=== PATIENT | male | born 1960 | race Caucasian/White ===

== ENCOUNTER 2024-04-02 13:19 | Inpatient (IN) | payer MEDICARE, OTHER ==
[~2024-04-02] VITALS: Ht 177.8 cm; Wt 70.0 kg
[2024-04-02] MEDS ORDERED: [UNRECOGNIZED DRUG - OTHER] IV SCH (13:35)
[2024-04-02] MEDS ORDERED: NOREPINEPHRINE IV SCH (13:35)
[2024-04-02 13:42] LABS: BASOPHILS % (AUTO) 0.5 % (0-1); EOSINOPHILS % (AUTO) 0 % (0-6); HEMATOCRIT 23.5 % (42.0-52.0); HEMOGLOBIN 8.1 g/dl (14.0-17.9); LYMPHOCYTES % (AUTO) 14.3 % (21-51); MEAN CORPUSCULAR HEMOGLOBIN 35.2 PG (27.0-31.0); MEAN CORPUSCULAR HGB CONC 34.3 g/dL (33.0-36.5); MEAN CORPUSCULAR VOLUME 102.5 FL (78-98); MEAN PLATELET VOLUME 9.1 FL (7.4-10.4); MONOCYTES # (AUTO) 0.3 X10'3 (0-0.9); NEUTROPHILS # (AUTO) 5.7 X10'3 (1.8-7.7); NEUTROPHILS % (AUTO) 81.2 % (42-75); PLATELET COUNT 69 X10'3 (140-440); RED BLOOD COUNT 2.29 X10'6 (4.70-6.10)
[2024-04-02 13:55] LABS: ALANINE AMINOTRANSFERASE 29 U/L (12-78); ALBUMIN 2.2 G/DL (3.4-5.0); ALKALINE PHOSPHATASE 50 IU/L (46-116); ANION GAP 18 (8-16); ASPARTATE AMINO TRANSFERASE 61 U/L (10-37); BILIRUBIN,TOTAL 8.3 MG/DL (0.1-1.0); BLOOD UREA NITROGEN 101 MG/DL (7-18); BUN/CREATININE RATIO 17.4 (10.0-20.0); CALCIUM 8.2 MG/DL (8.5-10.1); CHLORIDE 96 MMOL/L (99-107); CREATININE 5.82 MG/DL (0.60-1.10); GLUCOSE 124 MG/DL (70-104); SODIUM 131 MMOL/L (135-145); TOTAL CARBON DIOXIDE 16.8 MMOL/L (24-32); eCRCL 13 ML/MIN; eGFR 10 ML/MIN
[2024-04-02] MEDS: normal saline 1000ml 1,000 ML IV ONE ×2 (13:56→15:49)
[2024-04-02 13:57] LABS: ALBUMIN/GLOBULIN RATIO 0.4 (1.1-1.5); POTASSIUM 4.1 MMOL/L (3.5-5.1); TOTAL PROTEIN 7.1 G/DL (6.4-8.2)
[2024-04-02 14:02] LABS: PRO BRAIN NATRIURETIC PEPTIDE 2561 PG/ML (0-125)
[2024-04-02 14:06] LABS: ANISOCYTOSIS 3+; PLATELET ESTIMATE DECREASED
[2024-04-02 14:07] LABS: BURR CELLS 1+
[2024-04-02 14:08] LABS: MICROCYTOSIS 1+; TARGET CELLS FEW
[2024-04-02 14:12] LABS: APTT 30 SECONDS (22-32); INR 1.8 INR; PROTHROMBIN TIME 18.4 SECONDS (9.0-12.0)
[2024-04-02 14:27] LABS: ETHANOL < 10 MG/DL (<10); MAGNESIUM 3.1 MG/DL (1.5-2.4)
[2024-04-02] MEDS: NORepinephrine 8mg/ 250ml NS 250 ML IV SCH (14:54)
[2024-04-02] MEDS: albumin (Human) 5% 250ml 250 ML IV ONE (15:34)
[2024-04-02] MEDS: ondansetron/PF 4mg/2ml inj IV ONE (15:54)
[2024-04-02] MEDS: midazolam 1 mg/ML 2ml injection ONE (17:00)
[2024-04-02] MEDS: MIDAZolam 1 MG/ML 5ML VIAL IV ONE (17:01)
[2024-04-02 17:48] LABS: LYMPHOCYTES,BODY FLUID 86 %; MONOCYTES,BODY FLUID 5 %; NEUTROPHILS,BODY FLUID 9 %
[2024-04-02 17:53] LABS: BF MESOTHELIAL CELLS FEW; BFAPPEAR CLOUDY; BFCOLOR YELLOW; BFSOURCE OTHER; BFVOLUME 16 ML
[2024-04-02] MEDS: normal saline 1000ml 1,000 ML IV SCH (18:07)
[2024-04-02] MEDS ORDERED: magnesium hydroxide 30ml (MOM) UD suspension PO PRN (18:55)
[2024-04-02] MEDS ORDERED: LORazepam 2 mg/ml vial IV PRN (19:00)
[2024-04-02] MEDS ORDERED: haloperidol lactate 5mg/ml inj IM PRN (19:00)
[2024-04-02 19:20] LABS: PHOSPHORUS 6.9 MG/DL (2.3-4.5)
[2024-04-02] MEDS: LidoCAINE 2% Topical Jelly 11mL syringe (UROJET) TOP ONE (19:25)
[2024-04-02] MEDS: octreotide inj. 500 MCG in normal saline 100ml IV soln 97.5 ML IV SCH (19:36)
[2024-04-02] MEDS: albumin (Human) 5% 250ml 250 ML IV SCH (19:48)
[2024-04-02] MEDS: CefTRIAXone/D5W-Rocephin 1gm 50 ML IV SCH (19:48)
[2024-04-02] MEDS: lactulose 20gm/30ml cup PO SCH (19:48)
[2024-04-02 19:55] LABS: HEMOGLOBIN 7.3 g/dl (14.0-17.9); MEAN CORPUSCULAR HEMOGLOBIN 35.6 PG (27.0-31.0); MEAN CORPUSCULAR HGB CONC 35.2 g/dL (33.0-36.5); MEAN CORPUSCULAR VOLUME 101.2 FL (78-98); MEAN PLATELET VOLUME 8.7 FL (7.4-10.4); PLATELET COUNT 65 X10'3 (140-440); RED BLOOD COUNT 2.04 X10'6 (4.70-6.10); RED CELL DISTRIBUTION WIDTH 24.5 % (11.5-14.5); WHITE BLOOD COUNT 7.8 X10'3 (4.5-11.0)
[2024-04-02 20:00] LABS: HEMATOCRIT 20.7 % (42.0-52.0)
[2024-04-02] MEDS: thiamine 100mg/ml 2ml inj. IV SCH (20:30)
[2024-04-02] MEDS: folic acid 1mg tablet PO SCH (20:30)
[2024-04-02] MEDS: ringers solution, lacted 1,000 ML IV SCH (20:31)
[2024-04-02] MEDS: propranolol 10mg tablet PO SCH (21:00)
[2024-04-02] MEDS: rifaximin 550mg tablet PO SCH (21:15)
[2024-04-02] MEDS: pantoprazole 40MG/NS 100ML BAG 100 ML IV SCH (21:47)
[2024-04-02 22:07] LABS: BILIRUBIN,URINE SMALL (Neg); CLARITY,URINE CLEAR (Clear); COLOR,URINE YELLOW (Yellow); GLUCOSE, URINE NEGATIVE (Neg); KETONES,URINE TRACE mg/dl (Neg); LEUKOCYTE ESTERASE ,URINE NEGATIVE (Neg); NITRITES, URINE NEGATIVE (Neg); OCCULT BLOOD,URINE MODERATE (Neg); PH,URINE 5.5 (4.8-8.0); PROTEIN,URINE TRACE mg/dl (Neg)
[2024-04-02 22:09] LABS: OSMOLALITY UA 342 MOSM/K (50-1400)
[2024-04-02 22:14] LABS: SODIUM,URINE RANDOM < 15 MEQ/L
[2024-04-02 22:18] LABS: SQUAMOUS EPITHELIAL CELL,UR FEW /LPF (FEW); UA COLLECTION TYPE FOLEY CATH
[2024-04-02 22:19] LABS: WBC,URINE 0-4 /HPF (0-4)
[2024-04-02 22:20] LABS: BACTERIA,URINE FEW /HPF (Neg); MUCUS STRANDS FEW /LPF (Neg)
[2024-04-02 22:42] LABS: UA EOSINOPHILS NO EOS /HPF
[2024-04-02 23:00] VITALS: BP 99/56; PULSE 90; RESP 10; O2SAT 94
[2024-04-02 23:17] LABS: BF RBC COUNT 1075 /CU MM; BF WBC COUNT 65 /CU MM (0-1000)
[2024-04-03] VITALS (39 sets, daily range): BP systolic 90–118; BP diastolic 48–76; PULSE 61–95; RESP 9–22; TEMP 97.6; O2SAT 89–98
[2024-04-03 01:03] LABS: BASOPHILS # (AUTO) 0.1 X10'3 (0-0.2); BASOPHILS % (AUTO) 0.7 % (0-1); LYMPHOCYTES # (AUTO) 1.9 X10'3 (1.1-4.8); MONOCYTES # (AUTO) 0.3 X10'3 (0-0.9)
[2024-04-03 01:05] LABS: EOSINOPHILS % (AUTO) 0.2 % (0-6); LYMPHOCYTES % (AUTO) 21.6 % (21-51); MEAN CORPUSCULAR HEMOGLOBIN 35.4 PG (27.0-31.0); MEAN CORPUSCULAR VOLUME 101.3 FL (78-98); MONOCYTES % (AUTO) 3.4 % (2-12); NEUTROPHILS # (AUTO) 6.6 X10'3 (1.8-7.7); NEUTROPHILS % (AUTO) 74.1 % (42-75); PLATELET COUNT 64 X10'3 (140-440); RED BLOOD COUNT 1.85 X10'6 (4.70-6.10); RED CELL DISTRIBUTION WIDTH 24.3 % (11.5-14.5); WHITE BLOOD COUNT 8.9 X10'3 (4.5-11.0)
[2024-04-03 01:22] LABS: HEMATOCRIT 18.7 % (42.0-52.0); HEMOGLOBIN 6.6 g/dl (14.0-17.9)
[2024-04-03 01:26] LABS: % IRON SATURATION 116 % (11-46); IRON 92 UG/DL (53-167); TOTAL IRON BINDING CAPACITY 79 UG/DL (259-388)
[2024-04-03 01:48] LABS: ALANINE AMINOTRANSFERASE 23 U/L (12-78); ALBUMIN 2.4 G/DL (3.4-5.0); ALKALINE PHOSPHATASE 41 IU/L (46-116); ANION GAP 15 (8-16); ASPARTATE AMINO TRANSFERASE 55 U/L (10-37); BILIRUBIN,DIRECT 5.5 MG/DL (0-0.3); BILIRUBIN,TOTAL 9.8 MG/DL (0.1-1.0); BLOOD UREA NITROGEN 101 MG/DL (7-18); BUN/CREATININE RATIO 19.5 (10.0-20.0); CALCIUM 7.4 MG/DL (8.5-10.1); CHLORIDE 100 MMOL/L (99-107); CREATININE 5.19 MG/DL (0.60-1.10); GLUCOSE 130 MG/DL (70-104); POTASSIUM 3.8 MMOL/L (3.5-5.1); SODIUM 135 MMOL/L (135-145); TOTAL CARBON DIOXIDE 20.3 MMOL/L (24-32); eCRCL 14 ML/MIN; eGFR 11 ML/MIN
[2024-04-03 01:55] LABS: ALBUMIN/GLOBULIN RATIO 0.6 (1.1-1.5); FERRITIN 2979 NG/ML (26-388); PHOSPHORUS 6.3 MG/DL (2.3-4.5); TOTAL PROTEIN 6.2 G/DL (6.4-8.2)
[2024-04-03 07:26] LABS: HEMOGLOBIN 7.7 g/dl (14.0-17.9); MEAN CORPUSCULAR HEMOGLOBIN 34.2 PG (27.0-31.0); MEAN CORPUSCULAR HGB CONC 35.2 g/dL (33.0-36.5); MEAN CORPUSCULAR VOLUME 97.4 FL (78-98); MEAN PLATELET VOLUME 8.6 FL (7.4-10.4); PLATELET COUNT 59 X10'3 (140-440); RED BLOOD COUNT 2.25 X10'6 (4.70-6.10); RED CELL DISTRIBUTION WIDTH 24.8 % (11.5-14.5)
[2024-04-03 07:38] LABS: HEMATOCRIT 21.9 % (42.0-52.0)
[2024-04-03] MEDS: morphine 2 MG/ML inj. syringe IV PRN (10:42)
[2024-04-03] MEDS: ringers solution, lacted 1,000 ML IV ONE ×2 (10:47→12:00)
[2024-04-03] MEDS: MULTIVIT-MIN/FERROUS GLUCONATE 9 MG/15 ML LIQUID PO SCH (11:02)
[2024-04-03 11:37] LABS: HEMOGLOBIN 7.2 g/dl (14.0-17.9); MEAN CORPUSCULAR HEMOGLOBIN 34.4 PG (27.0-31.0); MEAN CORPUSCULAR HGB CONC 35.2 g/dL (33.0-36.5); MEAN CORPUSCULAR VOLUME 97.5 FL (78-98); MEAN PLATELET VOLUME 8.7 FL (7.4-10.4); PLATELET COUNT 55 X10'3 (140-440); RED CELL DISTRIBUTION WIDTH 25.2 % (11.5-14.5)
[2024-04-03 11:42] LABS: HEMATOCRIT 20.4 % (42.0-52.0)
[2024-04-03 17:33] LABS: HEMATOCRIT 22.1 % (42.0-52.0); HEMOGLOBIN 7.6 g/dl (14.0-17.9); MEAN CORPUSCULAR HEMOGLOBIN 34.1 PG (27.0-31.0); MEAN CORPUSCULAR HGB CONC 34.5 g/dL (33.0-36.5); MEAN CORPUSCULAR VOLUME 98.7 FL (78-98); MEAN PLATELET VOLUME 8.5 FL (7.4-10.4); PLATELET COUNT 59 X10'3 (140-440); RED BLOOD COUNT 2.24 X10'6 (4.70-6.10); RED CELL DISTRIBUTION WIDTH 26.6 % (11.5-14.5); WHITE BLOOD COUNT 8.6 X10'3 (4.5-11.0)
[2024-04-03] MEDS ORDERED: UNABLE TO OBTAIN (17:57)
[2024-04-03] MEDS: morphine 4 MG/ML inj SYRINge IV PRN (18:46)
[2024-04-03] MEDS: ondansetron/PF 4mg/2ml inj IV PRN (18:49)
[2024-04-03 20:06] LABS: EOSINOPHILS # (AUTO) 0.1 X10'3 (0-0.9); MONOCYTES # (AUTO) 0.3 X10'3 (0-0.9); NEUTROPHILS # (AUTO) 6.5 X10'3 (1.8-7.7); WHITE BLOOD COUNT 8.9 X10'3 (4.5-11.0)
[2024-04-03 20:08] LABS: BASOPHILS % (AUTO) 0.5 % (0-1); EOSINOPHILS % (AUTO) 0.8 % (0-6); HEMOGLOBIN 7.5 g/dl (14.0-17.9); LYMPHOCYTES # (AUTO) 1.9 X10'3 (1.1-4.8); LYMPHOCYTES % (AUTO) 21.9 % (21-51); MEAN CORPUSCULAR HGB CONC 34.5 g/dL (33.0-36.5); MEAN CORPUSCULAR VOLUME 98.6 FL (78-98); MEAN PLATELET VOLUME 8.2 FL (7.4-10.4); MONOCYTES % (AUTO) 3.5 % (2-12); NEUTROPHILS % (AUTO) 73.3 % (42-75); PLATELET COUNT 53 X10'3 (140-440); RED BLOOD COUNT 2.22 X10'6 (4.70-6.10)
[2024-04-03 20:10] LABS: HEMATOCRIT 21.9 % (42.0-52.0)
[2024-04-03 20:21] LABS: APTT 47 SECONDS (22-32); INR 2.4 INR; PROTHROMBIN TIME 23.4 SECONDS (9.0-12.0)
[2024-04-03 20:23] LABS: ALANINE AMINOTRANSFERASE 27 U/L (12-78); ALBUMIN/GLOBULIN RATIO 0.9 (1.1-1.5); ALKALINE PHOSPHATASE 38 IU/L (46-116); ANION GAP 16 (8-16); ASPARTATE AMINO TRANSFERASE 54 U/L (10-37); BILIRUBIN,TOTAL 10.3 MG/DL (0.1-1.0); BLOOD UREA NITROGEN 88 MG/DL (7-18); BUN/CREATININE RATIO 19.8 (10.0-20.0); CALCIUM 7.6 MG/DL (8.5-10.1); CHLORIDE 105 MMOL/L (99-107); CREATININE 4.45 MG/DL (0.60-1.10); GLUCOSE 127 MG/DL (70-104); MAGNESIUM 2.6 MG/DL (1.5-2.4); PHOSPHORUS 5.5 MG/DL (2.3-4.5); POTASSIUM 3.4 MMOL/L (3.5-5.1); SODIUM 139 MMOL/L (135-145); TOTAL CARBON DIOXIDE 18.4 MMOL/L (24-32); TOTAL PROTEIN 6.2 G/DL (6.4-8.2); eCRCL 17 ML/MIN; eGFR 13 ML/MIN
[2024-04-03 20:25] LABS: LACTIC SEPSIS 1.5 MMOL/L (0.4-2.0)
[2024-04-03 20:29] LABS: LYMPHOCYTES % (MANUAL) 18 % (21-51); MONOCYTES % (MANUAL) 2 % (2-12); NEUTROPHILS % (MANUAL) 80 % (42-75); TOTAL CELLS COUNTED 100
[2024-04-03 20:30] LABS: ANISOCYTOSIS 2+; HYPOCHROMASIA 1+; LARGE PLATELETS FEW; MICROCYTOSIS 1+; PLATELET ESTIMATE DECREASED; POIKILOCYTOSIS 1+; POLYCHROMASIA 1+; TARGET CELLS 1+
[2024-04-03 20:31] LABS: ACANTHOCYTES 2+; ELLIPTOCYTES 1+
[2024-04-04] VITALS (13 sets, daily range): BP systolic 61–117; BP diastolic 26–73; PULSE 71–95; RESP 6–22; TEMP 96.9; O2SAT 68–96
[2024-04-04] MEDS: HYDROmorphone inj. 0.5 MG/0.5 ML DISP.SYRIN IV PRN (00:39)
[2024-04-04 04:02] LABS: BASOPHILS % (AUTO) 0.4 % (0-1); EOSINOPHILS % (AUTO) 0.5 % (0-6); HEMOGLOBIN 7.6 g/dl (14.0-17.9); LYMPHOCYTES # (AUTO) 1.8 X10'3 (1.1-4.8); LYMPHOCYTES % (AUTO) 18.9 % (21-51); MEAN CORPUSCULAR HEMOGLOBIN 34.7 PG (27.0-31.0); MEAN CORPUSCULAR HGB CONC 35.1 g/dL (33.0-36.5); MEAN CORPUSCULAR VOLUME 98.9 FL (78-98); MEAN PLATELET VOLUME 7.8 FL (7.4-10.4); MONOCYTES # (AUTO) 0.3 X10'3 (0-0.9); MONOCYTES % (AUTO) 3.7 % (2-12); NEUTROPHILS # (AUTO) 7.2 X10'3 (1.8-7.7); NEUTROPHILS % (AUTO) 76.5 % (42-75); RED CELL DISTRIBUTION WIDTH 25.8 % (11.5-14.5); WHITE BLOOD COUNT 9.5 X10'3 (4.5-11.0)
[2024-04-04 04:16] LABS: ALANINE AMINOTRANSFERASE 23 U/L (12-78); ALBUMIN 3.3 G/DL (3.4-5.0); ALKALINE PHOSPHATASE 32 IU/L (46-116); ANION GAP 13 (8-16); ASPARTATE AMINO TRANSFERASE 55 U/L (10-37); BILIRUBIN,TOTAL 9.7 MG/DL (0.1-1.0); BLOOD UREA NITROGEN 80 MG/DL (7-18); BUN/CREATININE RATIO 19.2 (10.0-20.0); CALCIUM 7.6 MG/DL (8.5-10.1); CHLORIDE 105 MMOL/L (99-107); CREATININE 4.17 MG/DL (0.60-1.10); GLUCOSE 128 MG/DL (70-104); POTASSIUM 3.4 MMOL/L (3.5-5.1); SODIUM 138 MMOL/L (135-145); TOTAL CARBON DIOXIDE 19.7 MMOL/L (24-32); eCRCL 18 ML/MIN; eGFR 14 ML/MIN
[2024-04-04 04:17] LABS: ALBUMIN/GLOBULIN RATIO 1.1 (1.1-1.5); PHOSPHORUS 5.1 MG/DL (2.3-4.5); TOTAL PROTEIN 6.2 G/DL (6.4-8.2)
[2024-04-04 04:39] LABS: HEMATOCRIT 21.7 % (42.0-52.0)
[2024-04-04 04:40] LABS: PLATELET COUNT 49 X10'3 (140-440)
[2024-04-04 04:47] LABS: BANDS% (MANUAL) 1 % (0-10); LYMPHOCYTES % (MANUAL) 8 % (21-51); MONOCYTES % (MANUAL) 3 % (2-12); NEUTROPHILS % (MANUAL) 87 % (42-75); REACTIVE LYMPHOCYTES % 1 % (0-0); TOTAL CELLS COUNTED 100
[2024-04-04 04:48] LABS: ANISOCYTOSIS 2+; HYPOCHROMASIA 1+; MICROCYTOSIS 2+; NUCLEATED RED BLOOD CELLS 1 /100WBC (0-0); PLATELET ESTIMATE DECREASED; POIKILOCYTOSIS 2+
[2024-04-04 04:49] LABS: ACANTHOCYTES 1+; ELLIPTOCYTES 1+; STOMATOCYTES 1+; TARGET CELLS 1+
[2024-04-04] MEDS ORDERED: folic acid 1mg/0.2ml inj IV SCH (08:00)
[2024-04-04] MEDS: LORazepam 2 mg/ml vial IV PRN (09:40)
[2024-04-04] MEDS ORDERED: HYDROmorphone inj. 0.5 MG/0.5 ML DISP.SYRIN IV PRN (11:24)
[2024-04-04] MEDS ORDERED: HYDROmorphone 1 mg/ml syringe IV PRN (11:40)
[2024-04-05 06:07] LABS: BASOPHILS % (AUTO) 0.7 % (0-1); EOSINOPHILS # (AUTO) 0.1 X10'3 (0-0.9); MEAN CORPUSCULAR HEMOGLOBIN 33.4 PG (27.0-31.0); MEAN CORPUSCULAR HGB CONC 33.7 g/dL (33.0-36.5); MEAN PLATELET VOLUME 8.9 FL (7.4-10.4); MONOCYTES # (AUTO) 0.3 X10'3 (0-0.9); RED BLOOD COUNT 2.05 X10'6 (4.70-6.10); WHITE BLOOD COUNT 4.7 X10'3 (4.5-11.0)
[2024-04-05 06:09] LABS: EOSINOPHILS % (AUTO) 1.5 % (0-6); LYMPHOCYTES # (AUTO) 1.4 X10'3 (1.1-4.8); LYMPHOCYTES % (AUTO) 30.6 % (21-51); MEAN CORPUSCULAR VOLUME 99.1 FL (78-98); MONOCYTES % (AUTO) 5.5 % (2-12); NEUTROPHILS # (AUTO) 2.9 X10'3 (1.8-7.7); NEUTROPHILS % (AUTO) 61.7 % (42-75); RED CELL DISTRIBUTION WIDTH 26.2 % (11.5-14.5)
[2024-04-05 06:14] LABS: HEMATOCRIT 20.3 % (42.0-52.0); HEMOGLOBIN 6.8 g/dl (14.0-17.9)
[2024-04-05 06:15] LABS: PLATELET COUNT 41 X10'3 (140-440)
[2024-04-05 06:24] LABS: ALANINE AMINOTRANSFERASE 18 U/L (12-78); ALBUMIN 2.6 G/DL (3.4-5.0); ALKALINE PHOSPHATASE 34 IU/L (46-116); ANION GAP 11 (8-16); ASPARTATE AMINO TRANSFERASE 51 U/L (10-37); BILIRUBIN,TOTAL 6.2 MG/DL (0.1-1.0); BLOOD UREA NITROGEN 89 MG/DL (7-18); BUN/CREATININE RATIO 18.4 (10.0-20.0); CALCIUM 7.6 MG/DL (8.5-10.1); CHLORIDE 109 MMOL/L (99-107); CREATININE 4.85 MG/DL (0.60-1.10); GLUCOSE 109 MG/DL (70-104); POTASSIUM 3.6 MMOL/L (3.5-5.1); SODIUM 140 MMOL/L (135-145); TOTAL CARBON DIOXIDE 19.8 MMOL/L (24-32); eCRCL 15 ML/MIN; eGFR 12 ML/MIN
[2024-04-05 06:25] LABS: ALBUMIN/GLOBULIN RATIO 0.9 (1.1-1.5); PHOSPHORUS 5.6 MG/DL (2.3-4.5); TOTAL PROTEIN 5.4 G/DL (6.4-8.2)
[2024-04-05 06:58] LABS: ANISOCYTOSIS 3+; PLATELET ESTIMATE DECREASED; POIKILOCYTOSIS FEW; TARGET CELLS FEW; TOTAL CELLS COUNTED 100
[2024-04-05] MEDS: morphine 10mg/ml inj. IV PRN (07:36)
[2024-04-05 08:00] VITALS: RESP 28
[2024-04-05] MEDS ORDERED: LORazepam 2 mg/ml vial IV PRN (15:00)
[2024-04-05 18:30] VITALS: BP 54/29; PULSE 83; RESP 20; TEMP 99.2; O2SAT 84
[2024-04-06 06:00] VITALS: BP 55/29; PULSE 70; RESP 26; TEMP 97.6; O2SAT 64
== END 2024-04-06 14:30 | DRG 432 ==
LOC: ER 13:20 → ED HOLD 18:56 → CICU 2S 22:39 → SUR 3N 04-04 18:30
PROVIDERS: ADMIT Internal Medicine Critical Care Medicine; ATTEND Internal Medicine Critical Care Medicine
PROC: 0W9G30Z Drainage of Peritoneal Cavity with Drainage Device, Percutaneous Approach (ICD-10-PCS; 2024-04-02)
PROC: 02HV33Z Insertion of Infusion Device into Superior Vena Cava, Percutaneous Approach (ICD-10-PCS; 2024-04-02)
PROC: 30233N1 Transfusion of Nonautologous Red Blood Cells into Peripheral Vein, Percutaneous Approach (ICD-10-PCS; principal; 2024-04-03)
PROC: 0W9G30Z Drainage of Peritoneal Cavity with Drainage Device, Percutaneous Approach (ICD-10-PCS; 2024-04-04)
DX: K70.31 Alcoholic cirrhosis of liver with ascites (principal); K76.7 Hepatorenal syndrome; E87.1 Hypo-osmolality and hyponatremia; K92.2 Gastrointestinal hemorrhage, unspecified; N17.9 Acute kidney failure, unspecified; J98.11 Atelectasis; Z66 Do not resuscitate; K70.40 Alcoholic hepatic failure without coma; R57.1 Hypovolemic shock; K76.82 Hepatic encephalopathy; I46.9 Cardiac arrest, cause unspecified; E86.0 Dehydration; I95.9 Hypotension, unspecified; E88.09 Other disorders of plasma-protein metabolism, not elsewhere classified; N18.9 Chronic kidney disease, unspecified; R62.7 Adult failure to thrive; D50.0 Iron deficiency anemia secondary to blood loss (chronic); J84.112 Idiopathic pulmonary fibrosis; F17.210 Nicotine dependence, cigarettes, uncomplicated; Z51.5 Encounter for palliative care; Z88.2 Allergy status to sulfonamides; Z68.22 Body mass index [BMI] 22.0-22.9, adult
CPT/HCPCS: 36415; 36430; 70450; 71045; 71250; 74176; 80053; 80320; 81001; 82140; 82248; 82570; 82728; 82948; 83540; 83550; 83605; 83735; 83880; 83930; 83935; 84100; 84300; 84466; 84484; 85007; 85008; 85025; 85027; 85610; 85730; 86885; 86900; 86901; 86920; 87070; 87075; 87207; 89051; 93005; 93306; 99291; 99292; A4314; A4333; A6212; A6213; A6234; A6258; A6449; C1751; C1758; G0378; J0696; J1171; J2060; J2250; J2270; J2274; J2354; J2405; J2470; J3411; J7030; J7040; J7120; P9016; P9045